=== PATIENT | male | born 1975 | race Caucasian/White ===

== ENCOUNTER 2017-06-15 11:43 | Emergency (ER) | payer SELFPAY ==
[2017-06-15] MEDS ORDERED: IV NORMAL SALINE 1000ML BAG 1,000 ML IV ×2 (12:30)
[2017-06-15] MEDS ORDERED: IPRATRPIUM/ALBUTEROL 0.5/2.5MG 3 ML NEBU. NEB ×2 (12:30)
[2017-06-15] MEDS ORDERED: methylPREDNISolone SOD SUCC PF 125 MG/2 ML VIAL. IV ×2 (12:30)
[2017-06-15] MEDS ORDERED: ASPIRIN 325 MG TABLET PO ×2 (12:30)
[2017-06-15 12:38] LABS: ADD MAN DIFF? NO
[2017-06-15] MEDS: ONDANSETRON PF 4 MG/2 ML VIAL. IV ×4 (12:38→14:02)
[2017-06-15] MEDS: IV NORMAL SALINE 1000ML BAG 1,000 ML IV ×4 (12:38→14:02)
[2017-06-15 12:44] LABS: BASO % 1 % (0-3); EOS # 0.2 x10^3/uL (0.0-0.7); EOS % 2 % (0-3); HEMATOCRIT 48.8 % (39.0-53.0); LYMPH # 2.1 x10^3/uL (1.0-4.8); LYMPH % 24 % (24-48); MEAN CORPUSCULAR HEMOGLOBIN 32 pg (25-35); MEAN CORPUSCULAR HGB CONC 35 g/dL (31-37); MEAN CORPUSCULAR VOLUME 91 fL (79-100); MONO # 0.5 x10^3/uL (0.0-1.1); MONO % 6 % (0-9); NEUT # 5.8 x10^3uL (1.8-7.7); NEUT % 67 % (31-73); PLATELET COUNT 229 x10^3/uL (140-400); RED BLOOD COUNT 5.38 x10^6/uL (4.30-5.70); RED CELL DISTRIBUTION WIDTH 13.1 % (11.5-14.5); WHITE BLOOD COUNT 8.7 x10^3/uL (4.0-11.0)
[2017-06-15 12:52] LABS: ANION GAP 12 (6-14); BLOOD UREA NITROGEN 11 mg/dL (8-26); BUN/CREATININE RATIO 11 (6-20); CARBON DIOXIDE 27 mmol/L (21-32); CHLORIDE 101 mmol/L (98-107); GFR 82.3; GLUCOSE 133 mg/dL (70-99); POTASSIUM 4.4 mmol/L (3.5-5.1); SODIUM 140 mmol/L (136-145)
[2017-06-15 12:58] LABS: ALBUMIN 4.3 g/dL (3.4-5.0); ALBUMIN/GLOBULIN RATIO 1.1 (1.0-1.7); ALK PHOS 93 U/L (46-116); ALT (SGPT) 29 U/L (16-63); AST (SGOT) 17 U/L (15-37); LIPASE 337 U/L (73-393); MAGNESIUM 1.9 mg/dL (1.8-2.4); TOTAL BILIRUBIN 0.8 mg/dL (0.2-1.0); TOTAL PROTEIN 8.1 g/dL (6.4-8.2)
[2017-06-15 13:00] LABS: TROPONINI < 0.017 ng/mL (0.000-0.055)
[2017-06-15 14:48] LABS: BILIRUBIN,URINE SMALL (NEG); CLARITY,URINE CLEAR; COLOR,URINE AMBER; GLUCOSE,URINE NEGATIVE (NEG); NITRITE,URINE NEGATIVE (NEG); PROTEIN,URINE NEGATIVE (NEG-TRACE)
[2017-06-15 15:01] LABS: BACTERIA,URINE 0 /HPF (0-FEW); RBC,URINE 0 /HPF (0-2)
== END 2017-06-15 14:45 | disposition home or self-care (01) ==
LOC: ER 11:43
DX: R11.2 Nausea with vomiting, unspecified (principal); R10.84 Generalized abdominal pain; R19.7 Diarrhea, unspecified; K21.9 Gastro-esophageal reflux disease without esophagitis
CPT/HCPCS: 36415; 80053; 81001; 83690; 83735; 84484; 85025; 87086; 93005; 96361; 96374; 96376; 99285-25; J2405; J7030

== ENCOUNTER → 2019-07-04 | Day surgery (SDC) | payer BC ==
[~2019-07-04] MED LIST: ASPI-612 PO; IV RINGERS,LACTATED 1000ML 1,000 ML IV SCH; ONDA4TAB10 SL; PROPOFOL 20 ML IV ONE
[2019-07-04 12:48] VITALS: BP 122/90
== END ==
LOC: ENDOS 11:41
PROVIDERS: ATTEND Internal Medicine Gastroenterology
DX: R10.13 Epigastric pain (principal); K29.50 Unspecified chronic gastritis without bleeding; F15.90 Other stimulant use, unspecified, uncomplicated; F17.210 Nicotine dependence, cigarettes, uncomplicated; Z72.89 Other problems related to lifestyle
CPT/HCPCS: 43235; J2704